=== PATIENT | male | born 1945 ===

== ENCOUNTER 2019-06-17 10:25 | Day surgery (SDC) | payer OTHER, SELFPAY ==
--- NOTE | 2019-06-15 19:08 | PM.PREOP ---
Pre-operative Note Interval Note History & Physical reviewed/Exam performed by Physician: Yes Changes to H&P: No
--- NOTE | 2019-06-15 19:09 | PM.OP.1 ---
Operative Date/Time/Diagnoses Date of procedure: 06/17/19 Time of procedure: 11:45 Procedure & Clinicians Procedure: Preoperative diagnoses: 1. Left nuclear sclerotic and cortical cataract. 2. Recent right facial trauma with healing lacerations not in visual axis. 3. Anxiety. 4. HTN Postoperative diagnoses: 1. Cataract removed by phacoemulsification with placement of posterior chamber intraocular lens. 2. 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 Procedure: Phacoemulsification with posterior chamber intraocular lens implant Surgeon: Minal Padron MD Complications: None Specimen: None Implant: [id number]+18.5 Blood loss: None Anesthesia: Retrobulbar with monitored standby Description of procedure: Patient presents with a complaint of decreased vision due to cataract which is affecting activities of daily living. The patient wants surgery to improve vision. 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 He feels better vision would improve his coordination. A distance target is chosen. The patient was taken to the operating room and given IV sedation. A retrobulbar block consisting of 6 cc of 2% xylocaine without epinephrine mixed half and half with 0.5% Marcaine with 1 cc of hyaluronidase added is placed between the medial and lateral 1/3 of the inferior orbital rim. The eye is manually massaged for 30 sec, prepped using Betadine solution, and draped in the usual sterile fashion. Temporal approach was made, a 1 mm side-port incision was made 90? from the proposed clear corneal incision position. Phenylephrine 1.5% mixed with 1% xylocaine 0.2 cc was placed into the anterior chamber. Viscoat followed by Roberto Carlos was then placed. A 2.6 mm clear incision with a 2.6 mm blade was placed. A 360 degree capsulorrhexis style capsulotomy was then performed with a cystitome needle on a Healon. Hydrodelineation and hydrodissection were performed. The phacoemulsification unit is introduced, and sculpting notice used to groove the central lens. It is then removed in chopping mode. There was mild flopping of the subincisional iris but it did not exist the eye and extra viscoelastic was used with the phacoemulsification handpiece in place to counter act that. Epi nucleus is removed with epinuclear mode and irrigation aspiration was used to remove the peripheral cortex. The posterior capsule is polished. The intraocular lens is selected, inspected, power confirmed, and placed in the posterior chamber. Due to the tendency for floppy iris Miostat was placed. The wound was stromally hydrated and tested for leaks, there was none and it was left sutureless. Vigamox 0.1 cc was placed into the anterior chamber. Kenalog 0.2 cc was placed in the superior subconjunctival space. A drop of antibiotic and was placed and the eye was patched and shielded. The patient was stable and returned to the recovery room in excellent condition. Dictated by: Minal Padron MD Copy to: [facility]
[2019-06-17 12:53] VITALS: BP 148/71; PULSE 64; RESP 16; TEMP 36.7; O2SAT 100; BMI 28.0
[2019-06-17] MEDS: PROPARACAINE 0.5% OPHTH SOL 2 DROPS EYE-OP (13:02)
[2019-06-17] MEDS: CATARACT EYE COMPOUND (10 DROPS/SYRINGE) 3 DROPS EYE-OP (13:07)
[2019-06-17] MEDS: PHENYLEPHRINE/LIDOCAINE VIAL (OR) 0.2 ML EYE-OP (15:50)
[2019-06-17] MEDS: TRIAMCINOLONE 50 MG/5 ML VIAL INJ (15:50)
[2019-06-17] MEDS: MOXIFLOXACIN INJ 5 MG/ML VIAL EYE-OP (15:50)
[2019-06-17] MEDS: CHONDROIDTIN/SOD HYALURONATE 1.05 ML SYRINGE INTRAOCULA (15:51)
[2019-06-17] MEDS: BALANCED SALT IRRIG SOLN NO.2 15 ML IRR (15:51)
[2019-06-17] MEDS: HYALURONATE SODIUM 10 MG/ML SYRINGE INJ (15:51)
[2019-06-17] MEDS: NEOMYCIN/POLY/DEX OPHTH OINT 1 APPLIC EYE-LEFT (15:51)
[2019-06-17] MEDS: LIDOCAINE 2% 4 ML, BUPIVACAINE 0.5% (PF) 4 ML, HYALURONIDASE 150 UNIT INJ (15:52)
[2019-06-17] MEDS: BALANCED SALT IRRIG SOLN NO.2 500 ML, EPINEPHrine 1 MG IRR (15:52)
[2019-06-17 16:20] VITALS: BP 143/76; PULSE 60; RESP 16; TEMP 36.7; O2SAT 99
== END 2019-06-17 16:20 | disposition home or self-care (01) ==
LOC: OR 10:27
PROVIDERS: PCP Student in an Organized Health Care Education/Training Program; Visit Provider Ophthalmology
PROC: (CPT 66984; principal; 2019-06-17 11:45)
DX: H25.812 Combined forms of age-related cataract, left eye (principal); H21.81 Floppy iris syndrome; F41.9 Anxiety disorder, unspecified; I10 Essential (primary) hypertension
CPT/HCPCS: 66984; J0171; J2704; J3301; J3470